=== PATIENT | female | born 1965 | race Caucasian/White ===

== ENCOUNTER 2023-09-22 20:46 | Inpatient (IN) ==
[2023-09-22] MEDS: Ondansetron 4 mg VIAL 2 MG/ML 2 ml VIAL IV ONE (22:11)
[2023-09-22] MEDS: Lactated Ringers 1000 ml BAG 1,000 ML IV ONE (22:11)
[2023-09-22 22:24] LABS: ABS Basophils 0.1 10^3/uL (0.0-0.1); ABS Lymphocytes 1.2 10^3/uL (1.0-4.8); ABS Monocytes 0.7 10^3/uL (0.0-0.9); ABS Nucleated RBC 0.01 10^3/ul; Eosinophil % 0.2 %; Hematocrit 25.3 % (35-45); Hemoglobin 8.7 g/dL (11.5-14.3); Lymphocyte % 11.2 %; Mean Corpuscular Hemoglobin 35.3 pg (27-33); Mean Corpuscular Hgb Conc 34.4 g/dL (31-36); Mean Corpuscular Volume 102.5 fL (80-97); Mean Platelet Volume 9.4 fL (7.5-11.2); Platelet Count 182 10^3/uL (150-450); Red Blood Count 2.47 10^6/uL (3.63-4.92); Red Cell Distribution Width 13.6 % (12-17)
[2023-09-22 22:38] LABS: Activated Partial Thrombo Time 42.2 seconds (26.0-38.0); INR 1.62 (0.83-1.13)
[2023-09-22 23:04] LABS: Urine Appearance Clear; Urine Bilirubin Negative (Negative); Urine Blood Negative (Negative); Urine Color Light-Yellow; Urine Glucose Negative (Negative); Urine Ketones Trace (Negative); Urine Nitrite Negative (Negative); Urine Protein Negative (Negative); Urine Specific Gravity 1.013 (1.002-1.030); Urine Urobilinogen Negative (Negative); Urine pH 6.5 (5.0-8.0)
[2023-09-22 23:18] LABS: ALT 40 U/L (7-52); AST 61 U/L (13-39); Albumin/Globulin Ratio 1.4 (1-3); Alkaline Phosphatase 166 U/L (35-149); Blood Urea Nitrogen 38 mg/dL (6-24); Calcium 9.1 mg/dL (8.6-10.3); Chloride 104 mmol/L (101-111); Creatinine, Serum 0.59 mg/dL (0.51-0.95); Globulin 2.9 g/dL (2-4); Glucose 124 mg/dL (70-100); Lipase 20 U/L (11.0-82.0); Magnesium 1.9 mg/dL (1.9-2.7); Potassium 4.5 mmol/L (3.5-5.0); Sodium 138 mmol/L (135-145); Total Protein 6.9 g/dL (6.4-8.9); eGFR CKD-EPI 105.7 (>60)
[2023-09-22] MEDS: Famotidine IV 10 MG/ML 2 ml VIAL (20 mg) IV SLOW PU ONE (23:29)
[2023-09-23 00:01] LABS: Anion Gap 9 mmol/L (2-16); CO2 Carbon Dioxide 25 mmol/L (22-32); Total Bilirubin 0.7 mg/dL (0.2-1.0)
[2023-09-23] MEDS: Pantoprazole VIAL 40 MG VIAL IV ONE (01:05)
[2023-09-23] MEDS: Pantoprazole 80 mg in NS BAG 80 MG/250 ML BAG IV ONE (01:07)
[2023-09-23 02:29] LABS: Alcohol, S < 13 mg/dL (<13)
[2023-09-23] MEDS ORDERED: Multivitamins/Minerals TAB PO SCH (03:00)
[2023-09-23] MEDS: cefTRIAXone 1 gm/50 mL D5W 1 GM/50 ML BAG IV SCH ×2 (04:19→04:21)
[2023-09-23 04:32] LABS: ABS Lymphocytes 2.4 10^3/uL (1.0-4.8); ABS Monocytes 1.2 10^3/uL (0.0-0.9); ABS Neutrophils 9.4 10^3/uL (1.5-7.6); Eosinophil % 0.1 %; Hemoglobin 7.5 g/dL (11.5-14.3); Lymphocyte % 18.3 %; Mean Corpuscular Hemoglobin 35.2 pg (27-33); Mean Corpuscular Hgb Conc 34.2 g/dL (31-36); Mean Corpuscular Volume 102.9 fL (80-97); Mean Platelet Volume 9.2 fL (7.5-11.2); Platelet Count 183 10^3/uL (150-450); Red Blood Count 2.14 10^6/uL (3.63-4.92); Red Cell Distribution Width 13.6 % (12-17); White Blood Count 13.1 10^3/uL (3.8-11.8)
[2023-09-23] MEDS: Iohexol 300 (CONTRAST) 10 ML SDV IV ONE (04:37)
[2023-09-23] MEDS: Thiamine 100 MG/ML 2 ml VIAL (200 mg) IM ONE (04:41)
[2023-09-23] MEDS: Lactated Ringers 1000 ml BAG 1,000 ML IV ONE ×3 (05:05→11:04)
[2023-09-23 05:30] LABS: % Iron Saturation 31 % (15-55); .Transferrin 251 mg/dL (203-362); Iron 110 ug/dL (50-212); Total Iron Binding Capacity 351 mcg/dL (250-450); Unsaturated Iron Binding 241 ug/dL
[2023-09-23 05:52] LABS: Ferritin 136.1 ng/mL (11-307)
[2023-09-23 05:55] LABS: Folate 11.92 ng/mL (5.90-24.80)
[2023-09-23 05:56] LABS: Vitamin B12 241 pg/mL (180-914)
[2023-09-23] MEDS: Folic Acid IV 1 MG in NS 0.9% 50 ML 50 ML IV SCH (08:55)
[2023-09-23] MEDS: Thiamine 100 MG/ML 2 ml VIAL 100 MG in NS 0.9% 50 ML 50 ML IV SCH (09:42)
[2023-09-23] MEDS: Pantoprazole VIAL 40 MG VIAL IV SCH (12:16)
[2023-09-23 13:58] LABS: ABS Basophils 0.1 10^3/uL (0.0-0.1); ABS Eosinophils 0.1 10^3/uL (0.0-0.5); ABS Lymphocytes 2.5 10^3/uL (1.0-4.8); ABS Monocytes 0.9 10^3/uL (0.0-0.9); ABS Neutrophils 5.2 10^3/uL (1.5-7.6); ABS Nucleated RBC 0.01 10^3/ul; Eosinophil % 1.3 %; Hematocrit 22.1 % (35-45); Hemoglobin 7.9 g/dL (11.5-14.3); Lymphocyte % 28.2 %; Mean Corpuscular Hemoglobin 35.4 pg (27-33); Mean Corpuscular Hgb Conc 35.5 g/dL (31-36); Mean Corpuscular Volume 99.8 fL (80-97); Mean Platelet Volume 8.7 fL (7.5-11.2); Nucleated Red Blood Cells % 0.1 %/100WBC (0.0-0.8); Platelet Count 127 10^3/uL (150-450); Red Blood Count 2.22 10^6/uL (3.63-4.92); Red Cell Distribution Width 15.4 % (12-17); White Blood Count 8.8 10^3/uL (3.8-11.8)
[2023-09-23] MEDS: Ondansetron 4 mg VIAL 2 MG/ML 2 ml VIAL IV PRN (19:20)
[2023-09-23 20:14] LABS: ABS Basophils 0.1 10^3/uL (0.0-0.1); ABS Eosinophils 0.2 10^3/uL (0.0-0.5); ABS Lymphocytes 1.7 10^3/uL (1.0-4.8); ABS Monocytes 0.7 10^3/uL (0.0-0.9); ABS Neutrophils 4.7 10^3/uL (1.5-7.6); ABS Nucleated RBC 0.01 10^3/ul; Eosinophil % 2.1 %; Hematocrit 22.3 % (35-45); Lymphocyte % 22.7 %; Mean Corpuscular Hemoglobin 35.8 pg (27-33); Mean Corpuscular Volume 99.5 fL (80-97); Mean Platelet Volume 8.7 fL (7.5-11.2); Nucleated Red Blood Cells % 0.1 %/100WBC (0.0-0.8); Platelet Count 123 10^3/uL (150-450); Red Blood Count 2.24 10^6/uL (3.63-4.92); Red Cell Distribution Width 16.5 % (12-17); White Blood Count 7.3 10^3/uL (3.8-11.8)
[2023-09-24 04:49] LABS: ABS Basophils 0.1 10^3/uL (0.0-0.1); ABS Eosinophils 0.2 10^3/uL (0.0-0.5); ABS Monocytes 0.5 10^3/uL (0.0-0.9); ABS Neutrophils 4.1 10^3/uL (1.5-7.6); Eosinophil % 3.1 %; Hematocrit 24.5 % (35-45); Hemoglobin 8.7 g/dL (11.5-14.3); Mean Corpuscular Hemoglobin 35.4 pg (27-33); Mean Corpuscular Hgb Conc 35.4 g/dL (31-36); Mean Corpuscular Volume 99.9 fL (80-97); Mean Platelet Volume 8.3 fL (7.5-11.2); Nucleated Red Blood Cells % 0.1 %/100WBC (0.0-0.8); Platelet Count 135 10^3/uL (150-450); Red Blood Count 2.45 10^6/uL (3.63-4.92); White Blood Count 6.9 10^3/uL (3.8-11.8)
[2023-09-24 05:54] LABS: Albumin 3.6 g/dL (3.2-5.2); Albumin/Globulin Ratio 1.4 (1-3); Creatinine, Serum 0.63 mg/dL (0.51-0.95); Globulin 2.6 g/dL (2-4); Total Bilirubin 0.9 mg/dL (0.2-1.0); Total Protein 6.2 g/dL (6.4-8.9)
[2023-09-24 08:26] LABS: ABS Basophils 0.1 10^3/uL (0.0-0.1); ABS Eosinophils 0.2 10^3/uL (0.0-0.5); ABS Lymphocytes 2.1 10^3/uL (1.0-4.8); ABS Monocytes 0.6 10^3/uL (0.0-0.9); ABS Nucleated RBC 0.01 10^3/ul; Hematocrit 23.6 % (35-45); Hemoglobin 8.2 g/dL (11.5-14.3); Lymphocyte % 30.1 %; Mean Corpuscular Hemoglobin 34.8 pg (27-33); Mean Corpuscular Hgb Conc 34.6 g/dL (31-36); Mean Corpuscular Volume 100.6 fL (80-97); Mean Platelet Volume 8.6 fL (7.5-11.2); Nucleated Red Blood Cells % 0.1 %/100WBC (0.0-0.8); Platelet Count 146 10^3/uL (150-450); Red Blood Count 2.35 10^6/uL (3.63-4.92); Red Cell Distribution Width 15.9 % (12-17); White Blood Count 6.9 10^3/uL (3.8-11.8)
[2023-09-24] MEDS ORDERED: Midazolam 10 mg/10 ml VIAL 1 mg/ml 10 ml VIAL (10 mg) ONE (12:23)
[2023-09-24] MEDS ORDERED: fentaNYL 100 mcg/2 ml 50 MCG/ML VIAL ONE (12:23)
[2023-09-24] MEDS ORDERED: Naloxone 0.4 mg VIAL 0.4 mg/ml 1 ml VIAL IV PUSH PRN (13:59)
[2023-09-24] MEDS ORDERED: Midazolam 10 mg/10 ml VIAL 1 mg/ml 10 ml VIAL (10 mg) IV SLOW PU ONE (13:59)
[2023-09-24] MEDS ORDERED: Ondansetron 4 mg VIAL 2 MG/ML 2 ml VIAL IV ONE (13:59)
[2023-09-24] MEDS ORDERED: fentaNYL 100 mcg/2 ml 50 MCG/ML VIAL IV SLOW PU ONE (13:59)
[2023-09-24] MEDS ORDERED: Lidocaine 2% JELLY 6 ML Topical TOPICAL ONE (13:59)
[2023-09-24] MEDS ORDERED: Flumazenil 0.5 mg/5 ml 0.1 MG/ML 5 ml VIAL IV PRN (13:59)
[2023-09-24] MEDS ORDERED: Lactated Ringers 1000 ml BAG 1,000 ML IV ONE (13:59)
[2023-09-24 15:31] VITALS: BP 108/64
[2023-09-24 16:18] LABS: ABS Basophils 0.1 10^3/uL (0.0-0.1); ABS Eosinophils 0.2 10^3/uL (0.0-0.5); ABS Lymphocytes 2.1 10^3/uL (1.0-4.8); ABS Monocytes 0.7 10^3/uL (0.0-0.9); ABS Neutrophils 3.6 10^3/uL (1.5-7.6); Eosinophil % 3.6 %; Hematocrit 23.1 % (35-45); Hemoglobin 8.1 g/dL (11.5-14.3); Lymphocyte % 31.5 %; Mean Corpuscular Hemoglobin 35.3 pg (27-33); Mean Corpuscular Hgb Conc 35.1 g/dL (31-36); Mean Corpuscular Volume 100.8 fL (80-97); Mean Platelet Volume 8.5 fL (7.5-11.2); Nucleated Red Blood Cells % 0.1 %/100WBC (0.0-0.8); Platelet Count 147 10^3/uL (150-450); Red Blood Count 2.29 10^6/uL (3.63-4.92); White Blood Count 6.7 10^3/uL (3.8-11.8)
== END 2023-09-24 19:43 | disposition home or self-care (01) | DRG 378 ==
LOC: ED 20:46 → EDHOLD 09-23 01:22 → SUATTDRO 09-23 01:22 → MEDTELE 09-23 03:08
PROVIDERS: ADMIT Internal Medicine; ATTEND Internal Medicine